=== PATIENT | female | born 1930 | race Caucasian/White ===

== ENCOUNTER 2017-06-19 10:33 | Emergency (ER) | payer MEDICARE ==
[~2017-06-19] VITALS: Ht 157.5 cm; Wt 57.6 kg
[2017-06-19] MEDS ORDERED: NEXIUM20 MG ORAL (10:40)
[2017-06-19] MEDS ORDERED: CRESTOR10 M1 ORAL (10:40)
[2017-06-19] MEDS ORDERED: LASIX20 M1 ORAL (10:40)
[2017-06-19] MEDS ORDERED: HUMALOG JU100 UNIT/1 SQ (10:40)
[2017-06-19] MEDS ORDERED: FOSAMAX70 MG ORAL (10:40)
[2017-06-19] MEDS ORDERED: JANUMET 50-1,01 EACH ORAL (10:40)
[2017-06-19] MEDS ORDERED: COREG CR20 MG ORAL (10:40)
[2017-06-19] MEDS ORDERED: LOSARTAN POTASS25 MG ORAL (10:40)
[2017-06-19] MEDS ORDERED: LANTUS SOL100 UNIT/1 SUBQ (10:40)
[2017-06-19] MEDS ORDERED: KLOR-CON M1010 ME1 PO ×2 (10:40)
[2017-06-19] MEDS ORDERED: NORVASC10 MG ORAL (10:40)
[2017-06-19] MEDS ORDERED: LEVOTHYROXINE75 MCG ORAL (10:40)
[2017-06-19] MEDS ORDERED: MULTAQ400 MG ORAL (10:40)
--- NOTE | 2017-06-19 11:12 | Emergency Room Report ---
History of Present Illness General Chief Complaint: To Be Triaged Source: Patient, EMS Present Illness HPI 78-year-old female, history of diabetes, chronic right leg infection, on tramadol, presenting with nausea vomiting. Patient states that yesterday she took double the dose of her tramadol, 200 mg, took this dose for the first time , states that it made her stomach feel weird, woke up this morning with 2 episodes of vomiting. Nonbilious nonbloody. No diarrhea. She states that she currently feels better right now. States that her tramadol as not working, her doctor increased her dose from 50 mg 100 mg, however states that she to 200 mg pill which she could not break apart yesterday so she took the whole thing She denies any fever chills chest pain shortness of breath. Denies any current abdominal pain. States that she had a right lower extremity infection, just completed antibiotics yesterday, states that she has an appointment to see her doctor within the next 2 weeks States her wound looks a lot better than before Allergies: Coded Allergies: ACETAMINOPHEN (Verified Allergy, Unknown, 06/19/17) CODEINE (Verified Allergy, Unknown, 06/19/17) HYDROCODONE (Verified Allergy, Unknown, 06/19/17) QUINIDINE (Verified Allergy, Unknown, 06/19/17) RIVAROXABAN (Verified Allergy, Unknown, 06/19/17) Patient History Past Medical History: see triage record Past Surgical History: none Pertinent Family History: none Last Menstrual Period: NA Reviewed Nursing Documentation: PMH: Agreed, PSxH: Agreed Nursing Documentation-PMH Past Medical History: No History, Except For Hx Hypertension: Yes - hypothyroidism Hx Diabetes: Yes Review of Systems All Other Systems: negative except mentioned in HPI Physical Exam Vital Signs Date Time Temp Pulse Resp B/P (MAP) Pulse Ox O2 Delivery O2 Flow Rate FiO2 06/19/17 10:24 98.4 69 14 160/71 100 Room Air Sp02 EP Interpretation: reviewed, normal General Appearance: normal inspection, well appearing, no apparent distress, alert, GCS 15, non-toxic Head: normocephalic, atraumatic Eyes: bilateral eye normal inspection, bilateral eye PERRL, bilateral eye EOMI ENT: normal ENT inspection, normal pharynx, normal voice, moist mucus membranes Neck: normal inspection, full range of motion, supple Respiratory: normal inspection, lungs clear, normal breath sounds, no respiratory distress, no retraction, no wheezing, speaking full sentences, chest symmetrical Cardiovascular #1: normal inspection, regular rate, rhythm, no edema, normal capillary refill Cardiovascular #2: 2+ radial (R), 2+ radial (L) Gastrointestinal: normal inspection, non tender, soft, non-distended, no guarding Musculoskeletal: normal range of motion, other - R lower ext ulceration, medial and lateral malleolus, no purulent drainage, tender Neurologic: normal inspection, alert, oriented x3, responsive, motor strength/ tone normal, sensory intact, normal gait, speech normal Psychiatric: normal inspection, judgement/insight normal, memory normal Skin: normal inspection, normal color, no rash, warm/dry, well hydrated, normal turgor Medical Decision Making Diagnostic Impression: Primary Impression: Nausea and vomiting ER Course 78-year-old female, episodes of nausea and vomiting this morning Differential Diagnosis: Gastritis, gastroenteritis, induced by tramadol UTI Her abdomen is very soft nontender at this time, patient is not complaining of abdominal pain Plan: Basic labs, ua, EKG Zofran, IVF ER course: Patient has remained stable during ED stay. no further episodes n/v Tolerating PO ambulating around ED states she feels better Disposition: Patient is to be discharged to home. Patient is instructed to follow up with their primary care doctor within 5 days. Strict return precautions discussed with patient such as fever, chills, worsening/severe abdominal pain, nausea, vomiting, black or bloody stools, which may indicate severe illness. Patient verbalizes understanding and agrees with plan. Please note that this Emergency Department Report was dictated using [employer] software, occasionally this can lead to erroneous entry secondary to interpretation by the dictation equipment EKG Diagnostic Results EP Interpretation: Yes Rate: normal Rhythm: NSR ST Segments: Mild prolonged QT, no other changes ASA given to patient: No Laboratory Tests Test 06/19/17 11:05 06/19/17 12:32 White Blood Count 6.5 K/UL (4.8-10.8) Red Blood Count 4.34 M/UL (4.20-5.40) Hemoglobin 12.0 G/DL (12.0-16.0) Hematocrit 38.4 % (37.0-47.0) Mean Corpuscular Volume 88 FL (80-99) Mean Corpuscular Hemoglobin 27.5 PG (27.0-31.0) Mean Corpuscular Hemoglobin Concent 31.2 G/DL (32.0-36.0) L Red Cell Distribution Width 13.7 % (11.6-14.8) Platelet Count 282 K/UL (150-450) Mean Platelet Volume 6.2 FL (6.5-10.1) L Neutrophils (%) (Auto) % (45.0-75.0) Lymphocytes (%) (Auto) % (20.0-45.0) Monocytes (%) (Auto) % (1.0-10.0) Eosinophils (%) (Auto) % (0.0-3.0) Basophils (%) (Auto) % (0.0-2.0) Differential Total Cells Counted 100 Neutrophils % (Manual) 90 % (45-75) H Lymphocytes % (Manual) 6 % (20-45) L Monocytes % (Manual) 3 % (1-10) Eosinophils % (Manual) 0 % (0-3) Basophils % (Manual) 1 % (0-2) Band Neutrophils 0 % (0-8) Platelet Estimate Adequate Platelet Morphology Normal Red Blood Cell Morphology Normal Sodium Level 138 MMOL/L (136-145) Potassium Level 4.2 MMOL/L (3.5-5.1) Chloride Level 104 MMOL/L (98-107) Carbon Dioxide Level 20 MMOL/L (21-32) L Anion Gap 14 mmol/L (5-15) Blood Urea Nitrogen 13 mg/dL (7-18) Creatinine 1.3 MG/DL (0.55-1.30) Estimate Glomerular Filtration Rate mL/min (>60) Glucose Level 232 MG/DL (74-106) H Calcium Level 8.4 MG/DL (8.5-10.1) L Total Bilirubin 0.7 MG/DL (0.2-1.0) Aspartate Amino Transferase (AST) 23 U/L (15-37) Alanine Aminotransferase (ALT) 15 U/L (12-78) Alkaline Phosphatase 58 U/L (46-116) Total Protein 7.7 G/DL (6.4-8.2) Albumin 3.1 G/DL (3.4-5.0) L Globulin 4.6 g/dL Albumin/Globulin Ratio 0.7 (1.0-2.7) L Lipase 118 U/L (73-393) Urine Color Pale yellow Urine Appearance Clear Urine pH 6 (4.5-8.0) Urine Specific [place] 1.015 (1.005-1.035) Urine Protein Negative (NEGATIVE) Urine Glucose (UA) 2+ (NEGATIVE) H Urine Ketones 2+ (NEGATIVE) H Urine Occult Blood Negative (NEGATIVE) Urine Nitrite Negative (NEGATIVE) Urine Bilirubin Negative (NEGATIVE) Urine Urobilinogen Normal MG/DL (0.0-1.0) Urine Leukocyte Esterase Negative (NEGATIVE) Last Vital Signs Date Time Temp Pulse Resp B/P (MAP) Pulse Ox O2 Delivery O2 Flow Rate FiO2 06/19/17 10:24 98.4 69 14 160/71 100 Room Air Disposition: HOME, SELF-CARE Condition: Improved Demar Orozco M.D. Jun 19, 2017 11:11
[2017-06-19 11:30] LABS: MEAN CORPUSCULAR HEMOGLOBIN 27.5 PG (27.0-31.0); MEAN CORPUSCULAR HGB CONC 31.2 G/DL (32.0-36.0); MEAN CORPUSCULAR VOLUME 88 FL (80-99); MEAN PLATELET VOLUME 6.2 FL (6.5-10.1); PLATELET COUNT 282 K/UL (150-450); RED BLOOD COUNT 4.34 M/UL (4.20-5.40); RED CELL DISTRIBUTION WIDTH 13.7 % (11.6-14.8); WHITE BLOOD COUNT 6.5 K/UL (4.8-10.8)
[2017-06-19 11:47] LABS: ANION GAP 14 mmol/L (5-15); CALCIUM 8.4 MG/DL (8.5-10.1); CARBON DIOXIDE 20 MMOL/L (21-32); CHLORIDE 104 MMOL/L (98-107); CREATININE 1.3 MG/DL (0.55-1.30); POTASSIUM 4.2 MMOL/L (3.5-5.1); SODIUM 138 MMOL/L (136-145)
[2017-06-19 11:52] LABS: ALANINE AMINOTRANSFERASE 15 U/L (12-78); ALBUMIN/GLOBULIN RATIO 0.7 (1.0-2.7); ASPARTATE AMINO TRANSFERASE 23 U/L (15-37); LIPASE 118 U/L (73-393); TOTAL PROTEIN 7.7 G/DL (6.4-8.2)
[2017-06-19 11:54] LABS: BASOPHILS % (MANUAL) 1 % (0-2); LYMPHOCYTES % (MANUAL) 6 % (20-45); NEUTROPHILS % (MANUAL) 90 % (45-75); TOTAL CELLS COUNTED 100
[2017-06-19 11:55] LABS: BAND NEUTROPHILS % (MANUAL) 0 % (0-8); EOSINOPHILS % (MANUAL) 0 % (0-3); PLATELET ESTIMATE ADEQUATE; PLATELET MORPHOLOGY NORMAL
[2017-06-19 12:43] VITALS: BP 128/73
[2017-06-19 13:11] LABS: APPEARANCE,URINE CLEAR; KETONES,URINE 2+ (NEGATIVE); LEUKOCYTE ESTERASE ,URINE NEGATIVE (NEGATIVE); NITRITE,URINE NEGATIVE (NEGATIVE); PH,URINE 6 (4.5-8.0); PROTEIN,URINE NEGATIVE (NEGATIVE); UROBILINOGEN,URINE NORMAL MG/DL (0.0-1.0)
[2017-06-19 14:20] VITALS: BP 122/70
--- NOTE | 2017-06-20 14:58 | Cardiology Report ---
APPROVED REPORT EKG Measurement Heart [id number] Sinus rhythm with 1st degree AV block Prolonged QT Abnormal ECG
== END 2017-06-19 14:19 | disposition home or self-care (01) ==
LOC: EDBD 10:33 → EMR 11:30
DX: R11.2 Nausea with vomiting, unspecified (principal); I10 Essential (primary) hypertension; E11.9 Type 2 diabetes mellitus without complications; E03.9 Hypothyroidism, unspecified; Z88.6 Allergy status to analgesic agent; Z88.8 Allergy status to other drugs, medicaments and biological substances
CPT/HCPCS: 36415; 80053; 81003; 83690; 85007; 85025; 93005; 96361; 96374; 99284; J2405